=== PATIENT | male | born 1970 | race Caucasian/White ===

== ENCOUNTER → 2021-01-04 | Day surgery (SDC) | payer OTHER ==
[~2021-01-04] MED LIST: AMARYL2 MG PO; ATORVASTATIN CA10 MG PO; METFORMIN HCL500 M3 PO; PANTOPRAZOLE SO40 M2 PO; VITAMIN C PO
[2021-01-04 09:27] LABS: HCT 46.2 % (42.0-52.0); HGB 15.2 g/dl (13.2-18.0); MCH 30.8 pg (25.0-31.0); MCHC 32.9 g/dL (32.0-36.0); MCV 93.7 fL (78.0-100.0); MPV 8.7 fL (6.0-9.5); RBC 4.93 M/uL (4.70-6.00); WBC 6.8 K/uL (4.0-10.5)
[2021-01-04 10:07] LABS: ALBUMIN 4.2 g/dL (3.4-5.0); BILIRUBIN - TOTAL 1.1 mg/dL (0.2-1.0); BUN/CREAT RATIO (CALC) 12.5 RATIO; CREATININE 0.8 mg/dL (0.67-1.17); GLOBULIN (CALCULATION) 3.1 g/dL; TOTAL PROTEIN 7.3 g/dL (6.4-8.2)
== END | disposition home or self-care (01) ==
LOC: FIS 08:00 → FAS 08:00
PROVIDERS: Surgery
DX: K29.70 Gastritis, unspecified, without bleeding (principal); R19.4 Change in bowel habit; K21.9 Gastro-esophageal reflux disease without esophagitis; E11.9 Type 2 diabetes mellitus without complications; Z79.82 Long term (current) use of aspirin; Z79.84 Long term (current) use of oral hypoglycemic drugs; Z88.0 Allergy status to penicillin; Z91.040 Latex allergy status
CPT/HCPCS: 36415; 76705; 80053; J2250; J2704; J7120